=== PATIENT | female | born 1960 | race Caucasian/White ===

== ENCOUNTER 2018-06-22 06:22 | Inpatient (IN) | payer SELFPAY ==
[~2018-06-22] VITALS: Ht 160 cm; Wt 48.1 kg
[2018-06-22 06:51] LABS: BASOPHILS ABSOLUTE AUTO 0.03 K/mm3 (0.00-0.23); BASOPHILS PERCENT AUTO 0 % (0-2); EOSINOPHILS ABSOLUTE AUTO 0.07 K/mm3 (0.00-0.68); EOSINOPHILS PERCENT AUTO 1 % (0-6); Hematocrit 46.1 % (33.0-51.0); Hemoglobin 15.1 g/dL (11.5-16.0); IMMATURE GRAN ABSOLUTE AUTO 0.02 K/mm3 (0.00-0.10); IMMATURE GRAN PERCENT AUTO 0 % (0-1); LYMPHOCYTES ABSOLUTE AUTO 1.49 K/mm3 (0.84-5.20); LYMPHOCYTES PERCENT AUTO 22 % (21-46); MONOCYTES ABSOLUTE AUTO 0.41 K/mm3 (0.16-1.47); MONOCYTES PERCENT AUTO 6 % (4-13); Mean Corpuscular HGB 31.9 pg (26.0-34.0); Mean Corpuscular HGB Conc 32.8 g/dL (31.5-36.5); Mean Corpuscular Volume 98 fL (80-100); Mean Platelet Volume 9.6 fL (9.1-12.4); NEUTROPHILS ABSOLUTE AUTO 4.92 K/mm3 (1.96-9.15); NEUTROPHILS PERCENT AUTO 71 % (41-73); Platelet Count 353 K/mm3 (150-400); RDW Coefficient Variation 12.9 % (11.7-14.2); RDW Standard Deviation 46.2 fL (35.1-46.3); Red Blood Cell Count 4.73 M/mm3 (3.80-5.20); White Blood Cell Count 6.94 K/mm3 (4.00-11.30)
[2018-06-22 07:10] LABS: Source, Urine Clean Catch
[2018-06-22 07:19] LABS: Appearance, Urine Clear (Clear); Blood, Urine 1+ (Neg); Color, Urine Red (P-Yellow); Glucose Qualitative, Urine Neg (Neg); Ketones, Urine Neg (Neg); Leukocyte Esterase, Urine Neg (Neg); Nitrite, Urine Pos (Neg); Protein, Urine 2+ (Neg); Urobilinogen, Urine 2+ (Normal)
[2018-06-22 07:26] LABS: Alanine Aminotransfer (ALT/SGP 27 U/L (12-78); Albumin, Blood 4.5 g/dL (3.4-5.0); Albumin/Globulin Ratio 1.3 (0.8-1.8); Alk Phos 87 U/L (50-136); Anion Gap 10 mmol/L (6-16); Aspartate Aminotrans (AST/SGOT 16 U/L (12-37); Bilirubin, Total 0.4 mg/dL (0.1-1.0); Blood Urea Nitrogen 13 mg/dL (8-24); Bun/Creatinine Ratio 18.5 (12.0-20.0); CO2, Blood 24 mmol/L (21-32); Chloride, Blood 107 mmol/L (98-108); Ethanol (Alcohol), Blood, Med <3 mg/dL; Globulin, Blood 3.4 g/dL (2.2-4.0); Glomerular Filtration Rate >60 (60-); Glucose, Blood 124 mg/dL (70-99); Potassium, Blood 3.9 mmol/L (3.5-5.5); Salicylate 1.8 mg/dL (2.8-20.0); Sodium, Blood 141 mmol/L (136-145); Thyroxine (T4) 9.6 ug/dL (4.8-13.9); Total Protein, Blood 7.9 g/dL (6.4-8.2)
[2018-06-22 07:31] LABS: Bilirubin, Urine 2+ (Neg)
[2018-06-22 07:33] LABS: Red Blood Cells, Urine 0-2 /hpf (0-2)
[2018-06-22 07:35] LABS: Squamous Epithelial Cells Rare /hpf (Few)
[2018-06-22 07:36] LABS: Bacteria Few /hpf; Hyaline Casts 0-2 /lpf (0-2)
[2018-06-22 07:39] LABS: Acetaminophen, Random 147.1 ug/mL (10.0-30.0)
[2018-06-22 07:43] LABS: U Amphetamine Screen Not Detected; U Barbituate Screen Not Detected; U Benzodiazapine Screen Not Detected; U Buprenorphine Screen Not Detected; U Cannabinoids Screen DETECTED; U Cocaine Screen Not Detected; U Methadone Screen Not Detected; U Methamphetamine Screen Not Detected; U Opiates Screen DETECTED; U Oxycodone Screen Not Detected; U Phencyclidine Screen Not Detected; U Propoxyphene Screen Not Detected
[2018-06-22 09:48] LABS: Prothrombin Time Results 10.6 Sec (9.7-11.5)
--- NOTE | 2018-06-22 12:00 | NUR ---
PT ARRIVED AT 1100 BY STRETCHER WITH LAMINATING MACHINE FEEDER AND TRANSFERRED SELF TO BED WITH ASSIST. SETTLED IN TO BED AND ADMISSION COMPLETED. VERY JOVIAL LAUGHING AND JOKING BUT WOULD SWING TO NEAR THE VERGE OF TEARS. STATED HER AND MOTHER HAD WITHIN A FEW MONTHS OF EACH OTHER APPROX A YEAR AGO AND SHE HAD DEVELOPED A "CRUSH ON MY HUSBANDS BROTHER". STATED SHE HAD THE CRUSH FOR SEVERAL MONTHS AND THE MAN DIDN'T KNOW IT UNTIL THE LAST DAY WHEN ACCORDING TO HER HE SAID HE JUST WANTED TO BE FRIENDS. AT THAT POINT SHE WENT HOME AND JUST WANTED IT OVER AND TOOK TYLENOL BETWEEN 2100 AND 2200. WHEN SHE GOT UP TO VOID SINCE ARRIVAL SHE WAS UNSTEADY ON HER FEET AND SO BED ALARMED. MONITER TECHS NOTIFIED OF PTS ARRIVAL.
--- NOTE | 2018-06-22 13:00 | NUR ---
CHANA FROM POISON CONTROL CALLED AND RECOMMENDED ANOTHER EKG AND OKED BY DR. PARRA. LABS CLARIFIED WELL AND FLUIDS.
--- NOTE | 2018-06-22 15:20 | NUR ---
Mary was quite talkative and tangental. She would smile and laugh one moment, and become tearful the next. She spoke non-stop and did not allow input or redirection. She says she wanted to kill herself after her [id number] rejected her advances. I listened for as long as I could, and when I tried to politely end the visit, she became angry and told me to leave. Test Technician services will remain available.
--- NOTE | 2018-06-22 16:25 | NUR ---
Patient is lying in bed and alert. Patient welcomed a spiritual care visit. Therapeutic alliance is easily established and patient openly shares about suicide attept and reasons surrounding that decision. Patient shared about her current emotions and the thoughts she is working through. I listened empathically, provided pastoral beauty counselor and spiritual guidance, reinforced helpful attitudes and practices, heard confession, provided a calming presence and prayer. Patient responded well and showed evidence of of catharsis and restored brionna. Patient voiced appreciation for my visit.
--- NOTE | 2018-06-22 19:43 | NUR ---
SHIFT SUMMARY PT HAD REPORTED ON FIRST ARRIVAL THAT SHE WASN'T INTERESTED IN LIVING ANYMORE STILL BECAUSE THERE WAS NOTHING LEFT TO LIVE FOR. LATER IN DAY STARTED SPEAKING ABOUT MOVING BACK TO [place] TO BE NEARER TO HER BROTHER AND FATHER. SLEEPING THIS EVENING AND APPEARS CALM.
--- NOTE | 2018-06-22 21:46 | NUR ---
PT REQUESTED TO HAVE BSC AT SIDE OF BED DUE TO FREQUENT VOIDING. PT HAS BEEN STEADY ON HER FEET. DENIES ANY SUICIDAL IDEATION AT THIS TIME. PT IS CURRENTLY ON 24 HOUR MONITORING VIA [facility]. BSC PROVIDED AT BEDSIDE FOR PT. WILL MONITOR CLOSELY.
--- NOTE | 2018-06-22 22:25 | NUR ---
VERIFIED WITH SUPERVISOR MAINSPRING FABRICATION THAT PT IS ON MONITOR AND IS BEING WATCHED CONTINUOUSLY. FREQUENT ROUNDING BEING DONE WELL.
--- NOTE | 2018-06-23 04:53 | NUR ---
SHIFT SUMMARY PT PLEASANT AND COOPEARTIVE. DENIES SUICIDAL IDEATION AT THIS TIME. DENIES WANTING TO HURT HERSELF OR HAVE ANY FURTHER PLANS. SHE JUST REPORTS THAT SHE IS "SAD" REGARDING THE ANNIVERSARY OF THE OF HER AND MOTHER. A/O. INDEPENDENT TO BSC. ALLOWED PT TO HAVE PHONE, PT REQUESTED IT SO SHE COULD CALL HER FATHER. UPDATED POISON CONTROL X 1 THIS EVENING. LABS DRAWN AT 0430 FOR NEW ACETAMINOPHEN LEVEL, AWAITING RESULTS AND ANOTHER CALL FROM POISON CONTROL. VSS. NEURO CHECKS NEGATIVE. PT ON 24 HOUR MONITORING AT THIS TIME. WILL CONTINUE TO MONITOR AND REPORT TO DAY RN.
[2018-06-23 05:46] LABS: Acetaminophen, Random <2.0 ug/mL (10.0-30.0); Alanine Aminotransfer (ALT/SGP 24 U/L (12-78); Albumin, Blood 3.5 g/dL (3.4-5.0); Albumin/Globulin Ratio 1.2 (0.8-1.8); Alk Phos 67 U/L (50-136); Anion Gap 8 mmol/L (6-16); Aspartate Aminotrans (AST/SGOT 12 U/L (12-37); Bilirubin, Direct <0.1 mg/dL (0.0-0.3); Bilirubin, Indirect Unable to Calculate mg/dL (0.1-0.7); Bilirubin, Total 0.5 mg/dL (0.1-1.0); Blood Urea Nitrogen 8 mg/dL (8-24); Bun/Creatinine Ratio 12.6 (12.0-20.0); CO2, Blood 25 mmol/L (21-32); Calcium, Blood 8.6 mg/dL (8.5-10.1); Chloride, Blood 111 mmol/L (98-108); Creatinine, Blood 0.64 mg/dL (0.40-1.00); Globulin, Blood 2.9 g/dL (2.2-4.0); Glomerular Filtration Rate >60 (60-); Glucose, Blood 104 mg/dL (70-99); Potassium, Blood 3.5 mmol/L (3.5-5.5); Sodium, Blood 144 mmol/L (136-145); Total Protein, Blood 6.4 g/dL (6.4-8.2)
[2018-06-23 05:48] LABS: International Normalized Ratio 1.09; Prothrombin Time Results 11.5 Sec (9.7-11.5)
--- NOTE | 2018-06-23 06:30 | NUR ---
SPOKE WITH POISON CONTROL THIS AM. PT NEAR COMPLETION OF THIRD BAG OF ACETYLCYSTEINE. RANJIT FROM POISON CONTROL STATED THAT THERE WERE THREE CRITERIA FOR STOPPING THE ACETYLCYSTEINE. ACETAMINOPHEN UNDETECTABLE, AST AND ALT BOTH < 50 AND INR < 2.0. PHARMACY IS MANAGING ACETYLCYSTEINE. PT'S LABS THIS AM WERE ACETAMINOPHEN- < 2.0, AST-12, ALT-24, AND INR-1.09. THIRD BAG COMPLETE AND STOPPED.
--- NOTE | 2018-06-23 12:38 | NUR ---
4-19-19 @0476 CHECKED THAT VARINDER THE TELE MONITOR IS ABLE TO VISUALIZE PT
--- NOTE | 2018-06-23 13:58 | NUR ---
Patient is sitting up and alert. Patient openly shares about her reflections about her struggles, her journey and some new goals that she is setting. Patient appears to be much more hopeful this day yet stated that she was anxious about locating her phone and about her upcoming visit with the Psychiatrist. We spent some time talking about trusting in God and finding meaning, peace and value in Him. Patient seems to be taking responsibility for her decisions. Patient responded well to pastoral guidance, emotional support, and the inspirational reading material and prayer that I provided. Patient voiced appreciation for my visit.
[2018-06-23] MEDS ORDERED: Nicoderm Cq1 EAC1 TOP (16:26)
--- NOTE | 2018-06-23 16:53 | NUR ---
DC SUMMARY PT LEFT VIA TAXI. ONLY RX WAS NICOTINE, WHICH SHE DECLINED, SO PRESCRIPTION NOT FAXED ANYWHERE. PIV REMOVED, PAPERWORK GONE OVER. ADVISED TO FOLLOW UP WITH PCP AND COUNSELOR AND CONSIDER AN ANTIDEPRESSANT. DENIEDS SI AT THIS TIME.
== END 2018-06-23 16:52 | disposition home or self-care (01) | DRG 918 ==
LOC: ER 06:22 → MEDS 08:57 → ENPENDDIS 06-23 16:26 → MEDS 06-23 16:52
PROVIDERS: Emergency Medicine; ADMIT Family Medicine
DX: T39.1X2A Poisoning by 4-Aminophenol derivatives, intentional self-harm, initial encounter (principal); F17.210 Nicotine dependence, cigarettes, uncomplicated; F32.9 Major depressive disorder, single episode, unspecified; F41.9 Anxiety disorder, unspecified; F10.20 Alcohol dependence, uncomplicated
CPT/HCPCS: 36415; 80053; 81001; 82248; 84436; 84443; 85025; 85610; 87086; 93005; 93010; 96361; 96365; 96366; 99285-25; G0480; J0132; J7060; J7070; J7120; P9612

== ENCOUNTER 2019-12-15 05:10 | Emergency (ER) | payer OTHER ==
[~2019-12-15] VITALS: Ht 160 cm; Wt 52.2 kg
[~2019-12-15 05:10] MED LIST: Nicoderm Cq1 EAC1 TOP
[2019-12-15 06:45] LABS: BASOPHILS ABSOLUTE AUTO 0.05 K/mm3 (0.00-0.23); BASOPHILS PERCENT AUTO 1 % (0-2); EOSINOPHILS ABSOLUTE AUTO 0.18 K/mm3 (0.00-0.68); EOSINOPHILS PERCENT AUTO 3 % (0-6); Hematocrit 40.5 % (33.0-51.0); Hemoglobin 13.5 g/dL (11.5-16.0); IMMATURE GRAN ABSOLUTE AUTO 0.01 K/mm3 (0.00-0.10); IMMATURE GRAN PERCENT AUTO 0 % (0-1); LYMPHOCYTES ABSOLUTE AUTO 2.12 K/mm3 (0.84-5.20); LYMPHOCYTES PERCENT AUTO 36 % (21-46); MONOCYTES ABSOLUTE AUTO 0.42 K/mm3 (0.16-1.47); MONOCYTES PERCENT AUTO 7 % (4-13); Mean Corpuscular HGB 31.7 pg (26.0-34.0); Mean Corpuscular HGB Conc 33.3 g/dL (31.5-36.5); Mean Corpuscular Volume 95 fL (80-100); NEUTROPHILS ABSOLUTE AUTO 3.15 K/mm3 (1.96-9.15); NEUTROPHILS PERCENT AUTO 53 % (41-73); Platelet Count 305 K/mm3 (150-400); RDW Coefficient Variation 12.5 % (11.7-14.2); Red Blood Cell Count 4.26 M/mm3 (3.80-5.20); White Blood Cell Count 5.93 K/mm3 (4.00-11.30)
[2019-12-15 06:49] LABS: Alanine Aminotransfer (ALT/SGP 25 U/L (12-78); Albumin, Blood 4.1 g/dL (3.4-5.0); Albumin/Globulin Ratio 1.4 (0.8-1.8); Alk Phos 93 U/L (50-136); Anion Gap 7 mmol/L (6-16); Aspartate Aminotrans (AST/SGOT 11 U/L (12-37); Bilirubin, Total 0.2 mg/dL (0.1-1.0); Blood Urea Nitrogen 17 mg/dL (8-24); Bun/Creatinine Ratio 25.1 (12.0-20.0); CO2, Blood 25 mmol/L (21-32); Calcium, Blood 8.7 mg/dL (8.5-10.1); Chloride, Blood 110 mmol/L (98-108); Creatinine, Blood 0.68 mg/dL (0.40-1.00); Globulin, Blood 2.9 g/dL (2.2-4.0); Glomerular Filtration Rate >60 (60-); Glucose, Blood 89 mg/dL (70-99); Potassium, Blood 3.8 mmol/L (3.5-5.5); Sodium, Blood 142 mmol/L (136-145); Troponin I <0.015 ng/mL (0.000-0.040)
== END 2019-12-15 08:19 | disposition home or self-care (01) ==
LOC: ER 05:10
PROVIDERS: Student in an Organized Health Care Education/Training Program
DX: R07.89 Other chest pain (principal); F17.200 Nicotine dependence, unspecified, uncomplicated; Z86.73 Personal history of transient ischemic attack (TIA), and cerebral infarction without residual deficits; Z88.0 Allergy status to penicillin
CPT/HCPCS: 36415; 71046; 80053; 83690; 84484; 85025; 93005; 93010; 99285-25